=== PATIENT | male | born 1940 | race Caucasian/White ===

== ENCOUNTER 2017-03-27 00:26 | Emergency (ER) | payer MEDICARE, OTHER ==
[2017-03-27 00:40] LABS: Glucose,Whole Blood 452 mg/dL (75-99)
--- NOTE | 2017-03-27 00:49 | ED ---
General Adult HPI - General Stated complaint: unresponsive Time Seen by Provider: 03/27/17 00:37 Source: RN notes reviewed, old records reviewed - History of Present Illness Initial comments: This is a 77-year-old male the ER for evaluation. Patient presents here today for evaluation of cardiopulmonary arrest. Patient was found by family member who called EMS this patient was unresponsive. Per EMS patient was found pulseless, apneic, cyanotic, unknown cause. Family states patient was acting appropriately all day, he did mow the lawn without difficulty. No significant complaints of chest pain or any really complaints struck the day. Patient did recently see his physician for medical screening. Per EMS patient was brought to ER was found to be in V. fib. Tach twice, they administered 2 shocks but never regained a pulse. 35 minutes of CPR approximately per EMS - Related Data Home Medications Medication Instructions Recorded Confirmed Lisinopril [Zestril] 10 mg PO DAILY 04/05/14 04/05/14 Methocarbamol [Robaxin] 500 mg PO TID 04/05/14 04/05/14 Pravastatin Sodium [Pravachol] 20 mg PO DAILY 04/05/14 04/05/14 Previous Rx's Medication Instructions Recorded Hydrocodone/Acetaminophen [[place] 1 each PO Q4HR PRN #15 tab 04/05/14 5-325] Allergies Allergy/AdvReac Type Severity Reaction Status Date / Time No Known Allergies Allergy Verified 04/05/14 05:43 Review of Systems ROS Statement: Those systems with pertinent positive or pertinent negative responses have been documented in the HPI. ROS Other: All systems not noted in ROS Statement are negative. Past Medical History Past Medical History: Hyperlipidemia, Hypertension History of Any Multi-Drug Resistant Organisms: None Reported Past Psychological History: No Psychological Hx Reported Smoking Status: Former smoker Past Alcohol Use History: None Reported Past Drug Use History: None Reported General Exam Limitations: altered mental status General appearance: obtunded, in distress Head exam: Present: atraumatic, normocephalic, normal inspection Eye exam: Present: other (fixed and dilated pupils). Absent: scleral icterus, conjunctival injection, periorbital swelling ENT exam: Present: normal exam, mucous membranes moist Neck exam: Present: normal inspection. Absent: tenderness, meningismus, lymphadenopathy Respiratory exam: Present: other (apnea) Cardiovascular Exam: Present: other (asystole) GI/Abdominal exam: Present: soft, normal bowel sounds. Absent: distended, tenderness, guarding, rebound, rigid Back exam: Present: normal inspection Skin exam: Present: cyanosis, mottled Course - Reevaluation(s) Reevaluation #1: 03/27/17 00:47 Dr. Jailyn bhatti as patient's personal physician Reevaluation #2: 03/27/17 00:47 After 15 minutes of high-quality ACLS protocol CPR emergency room, patient has no return of spontaneous circulation Reevaluation #3: 03/27/17 00:47 Family brought into trauma room for consultation, spoke with regarding patient' s poor prognosis and condition, questions are answered Medical Decision Making - Medical Decision Making 77 male to the ER status post Cardiopulmonary arrest, patient suffer from his injuries and nothing in his mortality, patient's pronounced at 0039 out of 510.17. Patient this time is asystole, apneic with pupils fixed and dilated, no breath sounds normal heart sounds - Lab Data Lab Results 03/27/17 Range/Units 00:29 POC Glucose (mg/dL) 452 H (75-99) mg/dL POC Glu Rolling Attendant Issa Johnson Disposition Clinical Impression: Cardiopulmonary arrest Disposition: Preliminary Cause of : CPA,VF
[2017-03-27] MEDS ORDERED: EPINEPHrine 10 ML SYRINGE (0.1 MG/ML) ONE (05:41)
[2017-03-27] MEDS ORDERED: SODIUM BICARB 8.4% 50 ML SYR (1 MEQ/ML) ONE (05:41)
== END 2017-03-27 02:16 | disposition expired ==
LOC: EC 00:26
DX: I46.9 Cardiac arrest, cause unspecified (principal); I10 Essential (primary) hypertension; E78.5 Hyperlipidemia, unspecified; Z87.891 Personal history of nicotine dependence; Z79.899 Other long term (current) drug therapy
CPT/HCPCS: 99285; 92950; 36415; J0171